=== PATIENT | female | born 1955 | race Caucasian/White ===

== ENCOUNTER 2016-10-13 09:41 | Emergency (ER) | payer OTHER ==
[2016-10-13 09:58] VITALS: BP 155/88
--- NOTE | 2016-10-13 10:14 | UC ---
Skin Complaint HPI - HPI Summary HPI Summary: Patient was bit by her cat yesterday, today had is red swollen and res streaks up the arm to mid humerus. no fever - History of Current Complaint Time Seen by Provider: 10/13/16 09:53 Stated Complaint: CAT BITE - RIGHT HAND Hx Obtained From: Patient ?: No Onset/Duration: Sudden Onset, Lasting Hours Skin Exposure Onset/Duration: Hours Ago Timing: Constant Onset Severity: Moderate Current Severity: Severe Location: Hand (Right) Character: Swelling, Pruritus, Redness, Painful Aggravating: Nothing Alleviating: Nothing Associated Signs & Symptoms: Positive: Red Streaks, Joint Swelling - Allergy/Home Medications Allergies/Adverse Reactions: Allergies Allergy/AdvReac Type Severity Reaction Status Date / Time Penicillins Allergy Hives Verified 10/13/16 09:58 Sulfa Antibiotics AdvReac GI Upset Verified 10/13/16 09:58 Review of Systems Constitutional: Negative Skin: Other - redness Eyes: Negative ENT: Negative Respiratory: Negative Cardiovascular: Negative Gastrointestinal: Negative Genitourinary: Negative Motor: Negative Neurovascular: Negative Musculoskeletal: Arthralgia, Decreased ROM, Edema, Myalgia Neurological: Negative Psychological: Negative All Other Systems Reviewed And Are Negative: Yes PMH/Surg Hx/FS Hx/Imm Hx Previously Healthy: Yes - Surgical History Surgical History: Yes Surgery Procedure, Year, and Place: Gallbladder 1994 - Family History Known Family History: Positive: Hypertension - Social History Alcohol Use: Daily Substance Use Type: None Smoking Status (MU): Former Smoker Type: Cigarettes When Did the Patient Quit Smoking/Using Tobacco: 1997 Physical Exam Triage Information Reviewed: Yes Appearance: Well-Appearing, Well-Nourished, Pain Distress Vital Signs: Initial Vital Signs Temp 99.7 F 10/13/16 09:50 Pulse 89 10/13/16 09:50 Resp 12 10/13/16 09:50 BP 155/88 10/13/16 09:50 Pulse Ox 98 10/13/16 09:50 Vital Signs Reviewed: Yes Eye Exam: Normal Eyes: Positive: Conjunctiva Clear ENT Exam: Normal Dental Exam: Normal Neck exam: Normal Respiratory Exam: Normal Cardiovascular Exam: Normal Cardiovascular: Positive: RRR, No Murmur, Pulses Normal Abdominal Exam: Normal Abdomen Description: Positive: Nontender, No Organomegaly, Soft Bowel Sounds: Positive: Present Musculoskeletal: Positive: Edema @ - right fingers, hand and wrist, erythema red streaks extending above the elbow. Neurological Exam: Normal Psychological Exam: Normal Skin Exam: Normal Course/Dx - Course Course Of Treatment: hx obtained, exam performed, meds reviewed, transferred via private car to [facility] ER - Differential Diagnoses - Skin Complaint Differential Diagnoses: Abscess, Angioedema, Cellulitis, Contact Dermatitis, Lymphangitis - Diagnoses Provider Diagnoses: Cat bite. Cellulitis - Physician Notification/Consults Discussed Patient Care With: Dr Orozco Instructed by Provider To: Will See In ED Discharge - Discharge Plan Condition: Stable Disposition: AGAINST MEDICAL ADVICE
== END 2016-10-13 10:18 | disposition left against medical advice (07) ==
LOC: UCCORT 09:41
DX: S61.451A Open bite of right hand, initial encounter (principal); L03.113 Cellulitis of right upper limb; W55.01XA Bitten by cat, initial encounter
CPT/HCPCS: 99212; G0463